=== PATIENT | female | born 1990 | race Caucasian/White ===

== ENCOUNTER 2018-10-14 14:19 | Outpatient (CLI) | payer OTHER ==
[~2018-10-14 14:19] MED LIST: ABILIFY2 MG; KETO10TA2 PO; ORPH100T PO; PROZAC20 MG
== END 2018-10-14 14:41 | disposition home or self-care (01) ==
LOC: RAD 14:19
DX: M54.5 Low back pain (principal)

== ENCOUNTER 2019-01-22 08:35 | Outpatient (CLI) | payer OTHER | END 2019-01-22 08:41 | disposition home or self-care (01) | LOC: RAD 08:35 | DX: M54.5 Low back pain (principal) ==

== ENCOUNTER 2021-06-30 09:36 | Outpatient (CLI) | payer OTHER | END 2021-06-30 09:41 | disposition home or self-care (01) | LOC: SONOGRAMA 09:36 | PROVIDERS: ATTEND General Practice | DX: M25.552 Pain in left hip (principal); M25.551 Pain in right hip; E04.1 Nontoxic single thyroid nodule; M70.60 Trochanteric bursitis, unspecified hip; M54.5 Low back pain ==

== ENCOUNTER 2023-09-03 14:04 | Emergency (ER) | payer OTHER ==
[~2023-09-03] VITALS: Ht 167.6 cm; Wt 108.9 kg
[2023-09-03] MEDS ORDERED: NORFLEX100MG PO (21:06)
[2023-09-03] MEDS ORDERED: DICLOFENAC SODI75 MG PO (21:06)
== END 2023-09-03 21:22 | disposition home or self-care (01) ==
LOC: ER 14:05
DX: M25.552 Pain in left hip (principal)